=== PATIENT | male | born 1955 | race Caucasian/White ===

== ENCOUNTER 2025-01-01 09:33 | Day surgery (SDC) | payer MEDICARE ==
[~2025-01-01 09:33] MED LIST: LIDOCAINE 1% (10MG/ML) FOR IV START INTRADERMA PRN; ONDANSETRON 4 MG/2 ML VIAL IVP PRN
[2025-01-01] MEDS: LACTATED RINGERS 1,000 ML IV SCH (10:57)
[2025-01-01] MEDS: IV FLUID CONTINUATION 1,000 ML IV ONE (10:57)
[2025-01-01 10:58] VITALS: RESP 16; TEMP 96.2
[2025-01-01 11:04] LABS: Glucose,Whole Blood 103 mg/dL (70-110)
[2025-01-01] MEDS ORDERED: PROPOFOL 10 MG/ML 20 ML VIAL IV ONE (11:27)
--- NOTE | 2025-01-01 11:30 | P.GSHP ---
History of Present Illness H&P Date: 01/01/25 Chief Complaint: Abnormal Cologuard test 69-year-old male here for colonoscopy. Last colonoscopy 9 to 10 years ago. No bowel complaints. Recent stool test abnormal. Patient with family history of colon cancer in his mother. 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 History of Any Multi-Drug Resistant Organisms: None Reported Past Surgical History: AICD, Back Surgery, Bariatric Surgery, Cardiac Ablation, Heart Catheterization, Hernia Repair, Orthopedic Surgery Additional Past Surgical History / Comment(s): cardioversion Sep 2023, back fusion, right foot surg, gastric sleeve 2012, colonoscopy, medtronic dual chamber defibrillator/pacemaker Past Anesthesia/Blood Transfusion Reactions: No Reported Reaction Type of Cardiac Device: AICD Device Placement Date:: 2016 Smoking Status: Former smoker Medications and Allergies Home Medications Medication Instructions Recorded Confirmed Type Amiodarone [Cordarone] 200 mg PO DAILY 12/28/24 01/01/25 History Apixaban [Eliquis] 5 mg PO BID 12/28/24 01/01/25 History Atorvastatin [Lipitor] 20 mg PO HS 12/28/24 01/01/25 History Bumetanide 1 mg PO DIRECTED 12/28/24 01/01/25 History Empagliflozin [Jardiance] 10 mg PO DAILY 12/28/24 01/01/25 History Levothyroxine Sodium [Synthroid] 75 mcg PO DAILY 12/28/24 01/01/25 History Metoprolol Succinate (ER) [Toprol 50 mg PO HS 12/28/24 01/01/25 History Xl] Pregabalin [Lyrica] 150 mg PO TID 12/28/24 01/01/25 History Sacubitril/Valsartan [Entresto 49 1 each PO BID 12/28/24 01/01/25 History mg-51 mg Tablet] Spironolactone [Aldactone] 25 mg PO DAILY 12/28/24 01/01/25 History Allergies Allergy/AdvReac Type Severity Reaction Status Date / Time tramadol Allergy Rash/Hives Verified 01/01/25 10:43 Surgical - Exam Vital Signs Temp Pulse Resp BP Pulse Ox 96.2 F L 87 16 140/87 96 01/01/25 10:47 01/01/25 10:47 01/01/25 10:47 01/01/25 10:47 01/01/25 10:47 Physical exam: General: Well-developed, well-nourished HEENT: Normocephalic, sclerae nonicteric Abdomen: Nontender, nondistended Extremities: No edema Neuro: Alert and oriented Assessment and Plan (1) Abnormal stool test Narrative/Plan: Will proceed with colonoscopy at this time. Current Visit: Yes Status: Acute Code(s): R19.5 - OTHER FECAL ABNORMALITIES SNOMED Code(s): 509598525
--- NOTE | 2025-01-01 11:49 | P.PCN ---
Date of Procedure: 01/01/25 Procedure(s) Performed: PREOPERATIVE DIAGNOSIS: Abnormal Cologuard, family history of colon cancer in mother POSTOPERATIVE DIAGNOSIS: Hepatic flexure polyp, sigmoid polyp PROCEDURE: Colonoscopy with snare polypectomy ANESTHESIA: MAC SURGEON: Roman Pineda M.D. SPECIMENS: Polyps ENDOSCOPIC PROCEDURE: The patient was placed on the endoscopy table in the left decubitus position. The Olympus colonoscope was inserted into the anus and passed under direct visualization to the base of the cecum. The appendiceal orifice was visualized. From that point the scope was slowly withdrawn inspecting all surfaces carefully. There were no neoplastic inflammatory or polypoid lesions throughout the cecum. At the hepatic flexure a small polyp was seen and removed using the snare with cautery technique. The remainder of the transverse and descending colon appeared normal. In the sigmoid colon a small polyp was seen and removed using a snare with cautery technique. The remainder of the sigmoid and rectum was normal. There was no visible diverticulosis. Digital rectal examination was normal. The patient was taken to the recovery room in stable condition per anesthesia guidelines. RECOMMENDATIONS: Await biopsy results. Will call patient with timing for next colonoscopy.
[2025-01-01 12:21] VITALS: BP 115/73; PULSE 79
== END 2025-01-01 12:43 | disposition home or self-care (01) ==
LOC: ORWHC2ENDO 09:33
PROVIDERS: ATTEND Surgery
DX: D12.5 Benign neoplasm of sigmoid colon (principal); D12.3 Benign neoplasm of transverse colon; E78.5 Hyperlipidemia, unspecified; I11.0 Hypertensive heart disease with heart failure; I50.9 Heart failure, unspecified; I48.91 Unspecified atrial fibrillation; J45.909 Unspecified asthma, uncomplicated; M19.90 Unspecified osteoarthritis, unspecified site; E03.9 Hypothyroidism, unspecified; F41.9 Anxiety disorder, unspecified; Z79.01 Long term (current) use of anticoagulants; Z79.84 Long term (current) use of oral hypoglycemic drugs; Z79.890 Hormone replacement therapy; Z80.0 Family history of malignant neoplasm of digestive organs; Z87.891 Personal history of nicotine dependence; Z88.5 Allergy status to narcotic agent; Z95.810 Presence of automatic (implantable) cardiac defibrillator; Z98.890 Other specified postprocedural states; Z79.899 Other long term (current) drug therapy
CPT/HCPCS: 88305; 45385; J2704